=== PATIENT | male | born 1950 | race Caucasian/White ===

== ENCOUNTER 2016-07-21 08:59 | Emergency (ER) | payer OTHER ==
[2016-07-21 09:16] VITALS: BP 133/77
--- NOTE | 2016-07-21 09:31 | UC ---
Skin Complaint HPI - HPI Summary HPI Summary: FOUND A DEER TICK EMBEDDED LEFT HIP THIS MORNING. THINKS IT ATTACHED 2 DAYS AGO WHEN HE WAS OUT IN HIS BACK YARD. TRIED TO REMOVE WITH TWEEZERS BUT SOME TICK PARTS REMAIN EMBEDDED. IS CURRENTLY TAKING MINOCYCLINE FOR LYME DIAGNOSED LAST YEAR (PT FOLLOWS WITH A LYME SPECIALIST). - History of Current Complaint Chief Complaint: UCSkin Time Seen by Provider: 07/21/16 09:14 Stated Complaint: TICK BITE Hx Obtained From: Patient Onset/Duration: Lasting Days, Still Present Timing: Constant Onset Severity: Mild Current Severity: Mild Pain Intensity: 1 Location: Other - LEFT HIP Aggravating: Touch Alleviating: Nothing Associated Signs & Symptoms: Positive: Tenderness. Negative: Nausea, Fever, Throat Tightening, Rash, Syncope, Bruising Related History: Insect Bite/Sting - Allergy/Home Medications Allergies/Adverse Reactions: Allergies Allergy/AdvReac Type Severity Reaction Status Date / Time No Known Allergies Allergy Verified 10/15/15 14:51 Home Medications: Home Medications Minocycline (NF) 200 mg PO DAILY 07/21/16 [History Confirmed 07/21/16] Review of Systems Constitutional: Negative Skin: Other - TICK BITE LEFT HIP Respiratory: Negative Cardiovascular: Negative Gastrointestinal: Negative Neurological: Negative All Other Systems Reviewed And Are Negative: Yes PMH/Surg Hx/FS Hx/Imm Hx - Additional Past Medical History Additional PMH: LYME DISEASE 2016 Endocrine History Of: Denies: Diabetes, Thyroid Disease Cardiovascular History Of: Denies: Cardiac Disorders, Hypertension Respiratory History Of: Denies: COPD, Asthma GI/ History Of: Denies: Ulcer - Surgical History Surgical History: Yes Surgery Procedure, Year, and Place: Right Knee surgery 2010 - Family History Known Family History: Negative: Hypertension - Social History Alcohol Use: None Substance Use Type: None Smoking Status (MU): Never Smoked Tobacco - Immunization History Most Recent Influenza Vaccination: 2013 Most Recent Tetanus Shot: more than 10 yrs Most Recent Pneumonia Vaccination: never Physical Exam Triage Information Reviewed: Yes Appearance: Well-Appearing, No Pain Distress, Well-Nourished Vital Signs: Initial Vital Signs Temp 98 F 07/21/16 09:01 Pulse 75 07/21/16 09:01 Resp 16 07/21/16 09:01 BP 133/77 07/21/16 09:01 Pulse Ox 98 07/21/16 09:01 Vital Signs Reviewed: Yes Eyes: Positive: Conjunctiva Clear ENT: Positive: Hearing grossly normal Neck: Positive: Supple Respiratory: Positive: No respiratory distress, No accessory muscle use Cardiovascular: Positive: Pulses Normal Abdomen Description: Positive: Soft Musculoskeletal: Positive: No Edema Neurological: Positive: Alert Psychological: Positive: Age Appropriate Behavior Skin: Positive: Other - <1CM AREA OF ERYTHEMA SURROUNDING TICK BITE SITE LEFT HIP. PINPOINT SIZED TICK PART RETAINED. Course/Dx - Course Course Of Treatment: DISCUSSED WITH PT LACK OF MEDICAL NECESSITY OF REMOVING RETAINED TICK PART. PT REQUESTS IT BE REMOVED ANYWAY. PINPOINT SIZED TICK PART REMOVED USING 18 GAUGE NEEDLE AND SPLINTER FORCEPS. - Diagnoses Provider Diagnoses: TICK BITE LEFT HIP Discharge - Discharge Plan Condition: Stable Disposition: HOME Patient Education Materials: Tick Bite (ED) Referrals: Alisha Romeo MD [Primary Care Provider] - If Needed Additional Instructions: CONTINUE YOUR MINOCYCLINE PRESCRIBED. CONTINUE TO FOLLOW-UP WITH YOUR LYME SPECIALIST. SEEK FOLLOW-UP IF YOU DEVELOP SPREADING REDNESS OF THE SKIN, PURULENT DRAINAGE, FEVER, INCREASED PAIN OR ANY OTHER CONCERNING SYMPTOMS. THIS MAY BE A SIGN OF A SKIN INFECTION (REGULAR CELLULITIS OPPOSED TO LYME).
== END 2016-07-21 09:42 | disposition home or self-care (01) ==
LOC: UCEAST 08:59
DX: S70.262A Insect bite (nonvenomous), left hip, initial encounter (principal); W57.XXXA Bitten or stung by nonvenomous insect and other nonvenomous arthropods, initial encounter; Y93.9 Activity, unspecified; Y92.9 Unspecified place or not applicable
CPT/HCPCS: 99211; G0463